=== PATIENT | female | born 1990 | race Caucasian/White ===

== ENCOUNTER → 2021-02-01 12:13 | Outpatient (BNVA) | payer OTHER, SELFPAY | PROVIDERS: Family Provider Family Medicine; Visit Provider Nurse Practitioner | DX: Z20.822 Contact with and (suspected) exposure to COVID-19 (principal) | CPT/HCPCS: 87635 ==

== ENCOUNTER 2022-04-20 12:56 | Emergency (ER) | payer BC, MEDICAID, SELFPAY ==
[2022-04-20 13:01] VITALS: BP 168/87; PULSE 117; RESP 16; TEMP 36.7; O2SAT 98
--- NOTE | 2022-04-20 13:03 | XR_ITS ---
WS: [id number] XR wrist RT min 3V* [id number] REASON FOR EXAM: wrist pain FINDINGS: Transverse distal metaphyseal fracture of the distal right radius. Fracture lines enter the radiocarp al joint space. There is mild depression of the medial fracture fragment. Fracture is inferior to the radial ulnar joint. Scapholunate interval is intact. Ulnar styloid is intact. Minimal ventral angulation. XR/XR wrist RT min 3V* [id number] IMPRESSION: Right wrist fracture as above.
--- NOTE | 2022-04-20 14:22 | W.ED.EXTPRO ---
Documented by User: MENDY Driscoll 04/21/22 09:50 HPI - Extremity Problem General: Chief complaint: Extremity Injury, Upper Stated complaint: right wrist pain Time Seen by Provider: 04/20/22 14:02 History of Present Illness: Patient is a 31-year-old female comes to the ED with right wrist pain. Injury occurred just prior to arrival. Patient says she was out in the [place] with her pigs and she was chased by a pig and fell over landing on her right arm. She now has pain in her right wrist with some swelling. She rates her pain currently a 7 out of 10. Associated symptoms: Deny chest pain, fever(s) or rash Review of Systems Const: Denies: fever(s), chills or fatigue Eyes: Denies: change in vision or eye discomfort ENMT: Denies: throat pain, odynophagia, nasal discharge or nasal congestion Card: Denies: chest pain, palpitations, edema, swelling of feet/ankles, dyspnea on exertion or orthopnea Resp: Denies: dyspnea, productive cough or non-productive cough GI: Denies: abdominal pain, nausea, vomiting, diarrhea, constipation or hematochezia : Denies: flank pain, dysuria or hematuria Musc: Reports: extremity pain (Right wrist) and extremity swelling (Right wrist); Denies: neck pain or back pain Skin/Breast: Denies: rash or new lesions Neuro: Denies: headache(s), numbness in extremities or weakness in extremities [facility] ED PFSH: Medical History No pertinent family history Surgical History No pertinent past surgical history Social History Smoking and tobacco status: current every day smoker Physical Exam Const: COMMON NORMALS: patient oriented x3, healthy appearing and alert GENERAL APPEARANCE: cooperative and comfortable HENMT: COMMON NORMALS: normocephalic HEAD & SCALP: normocephalic MOUTH: Normal oral and palatal mucosa present THROAT: posterior oropharynx normal and uvula midline Neck/C-Spine: COMMON NORMALS: supple GENERAL: Yes normal visual inspection Resp: COMMON NORMALS: normal respiratory effort, No retractions, No use of accessory muscles and clear to auscultation bilaterally AUSCULTATION: clear to auscultation bilaterally Cardio: COMMON NORMALS: regular rate, regular rhythm, S1 normal heart sound present, S2 normal heart sound present, No gallops present (Cardio), No clicks present (Cardio), No murmurs present (Cardio) and Peripheral pulses 2+ throughout RATE: regular rate RHYTHM: regular rhythm HEART SOUNDS: S1 normal heart sound present and S2 normal heart sound present PERIPHERAL PULSES: Peripheral pulses 2+ throughout GI: COMMON NORMALS: Normal to inspection, nondistended, normoactive bowel sounds present, Soft to palpation, non-tender and no masses PALPATION: Yes Soft to palpation : COMMON NORMALS: Yes no CVA tenderness BLADDER/KIDNEY EXAM: Yes no CVA tenderness Back/Pelvis: COMMON NORMALS: no CVA tenderness Extremity: RIGHT UPPER EXTREMITY: Yes wrist Right wrist: Yes inspection (Swelling and ecchymosis noted), Yes palpation (Tenderness throughout wrist), Yes ROM (Limited due to pain) and Yes neurovascular exam (Intact) Neuro: COMMON NORMALS: patient oriented x3 SENSORIUM/ORIENTATION: Yes alert GAIT: Yes Normal gait present Skin: GENERAL SKIN EXAM: dry skin Course Vital Signs: Vital signs: Vital Signs Temperature 98.1 F 04/20/22 13:01 Pulse Rate 117 H 04/20/22 13:01 Respiratory Rate 16 04/20/22 13:01 Blood Pressure 168/87 04/20/22 13:01 Pulse Oximetry 98 04/20/22 13:01 Oxygen Delivery Me thod 04/20/22 13:01 MDM - Extremity (Nontraumatic) Medical Decision Making Patient is a 31-year-old female comes to the ED with right wrist pain. Injury occurred just prior to arrival. Patient says she was out in the [place] with her pigs and she was chased by a pig and fell over landing on her right arm. Vitals are stable. Exam of patient's shows some swelling and ecchymosis around right wrist. She has tenderness throughout her wrist. Limited range of motion in wrist due to pain neurovascular tact. X-ray of right wrist shows a transverse distal metaphyseal fracture of distal right radius. Patient was put in a volar splint. I placed an order with case management for patient be referred to Ortho for follow-up. She was discharged home with prescription for hydrocodone for pain at home. Return ED precautions given. Patient understood and agree with plan. Lab Data Radiology Impressions Wrist X-Ray 04/20/22 13:03 IMPRESSION: Right wrist fracture as above. Discharge Plan Discharge Patient Disposition: Home Clinical Impression: Fracture of wrist Qualifiers: Encounter type: initial encounter Fracture type: closed Laterality: right Qualified Code(s): S62.101A - Fracture of unspecified carpal bone, right wrist, initial encounter for closed fracture Condition: Stable Prescriptions: New ibuprofen 800 mg tablet 800 mg PO Q8H PRN (Reason: pain) Qty: 20 0RF No Action (DME) Fast Form Cock Up Splint See Rx Instructions .ROUTE .MEDSUPPLY Qty: 1 0RF Rx Instructions: As directed Discharge Orders: Discharge ED (Routine); Ordered 04/20/22 Ordered By: Cleveland Kirk Referrals: Kaycee Devi FNP [Primary Care Provider] - Discharge Diet: Regular Discharge Activity: Limit activity as instructed Patient Instructions: Wrist Fracture in Adults (ED), Opioid Safety Activity Restrictions/Additional Instructions: Follow-up with medical provider as directed. Case management should be contacted in the next several days set up an appoint with Ortho for follow-up. Keep splint on and dry and limit activity of right arm until cleared by Ortho. Take medications as prescribed. Return to the ER or your medical provider if condition worsens. Please read and understand discharge instructions. Thank you for choosing [facility] for your healthcare needs today. Please realize this is an emergency room and that we are providing you with a medical screening exam and this may not be complete and all inclusive of all the testing and or work up that you may need to determine your ailment or severity of your illness. It is very important that you follow up as instructed or that you return to the Emergency Department should you have concerns or if your condition changes or worsens in any way. Coding Level of Care Code ED Vendor Management Specialist for Chg Fwd Exam Comprehensive Documented by User: Rajna Blake DO 04/23/22 16:55 HPI - Extremity Problem General: Chief complaint: Extremity Injury, Upper Stated complaint: right wrist pain Time Seen by Provider: 04/20/22 14:02 [facility] ED PFSH: Medical History No pertinent family history Surgical History No pertinent past surgical history Social History Smoking and tobacco status: current every day smoker Course Vital Signs: Vital signs: Vital Signs Temperature 98.1 F 04/20/22 13:01 Pulse Rate 117 H 04/20/22 13:01 Respiratory Rate 16 04/20/22 13:01 Blood Pressure 168/87 04/20/22 13:01 Pulse Oximetry 98 04/20/22 13:01 Oxygen Delivery Me thod 04/20/22 13:01 MDM - Extremity (Nontraumatic) Medical Decision Making Patient is a 31-year-old female comes to the ED with right wrist pain. Injury occurred just prior to arrival. Patient says she was out in the [place]e with her pigs and she was chased by a pig and fell over landing on her right arm. Vitals are stable. Exam of patient's shows some swelling and ecchymosis around right wrist. She has tenderness throughout her wrist. Limited range of motion in wrist due to pain neurovascular tact. X-ray of right wrist shows a transverse distal metaphyseal fracture of distal right radius. Patient was put in a volar splint. I placed an order with case management for patient be referred to Ortho for follow-up. She was discharged home with prescription for hydrocodone for pain at home. Return ED precautions given. Patient understood and agree with plan. Chart reviewed and patient discussed with midlevel. Agree with assessment and plan. Lab Data Radiology Impressions Wrist X-Ray 04/20/22 13:03 IMPRESSION: Right wrist fracture as above. Discharge Plan Discharge Patient Disposition: Home Clinical Impression: Fracture of wrist Qualifiers: Encounter type: initial encounter Fracture type: closed Laterality: right Qualified Code(s): S62.101A - Fracture of unspecified carpal bone, right wrist, initial encounter for closed fracture Condition: Stable Prescriptions: New ibuprofen 800 mg tablet 800 mg PO Q8H PRN (Reason: pain) Qty: 20 0RF No Action (DME) Fast Form Cock Up Splint See Rx Instructions .ROUTE .MEDSUPPLY Qty: 1 0RF Rx Instructions: As directed Discharge Orders: Discharge ED (Routine); Ordered 04/20/22 Ordered By: Cleveland Kirk Referrals: Kaycee Devi FNP [Primary Care Provider] - Discharge Diet: Regular Discharge Activity: Limit activity as instructed Patient Instructions: Wrist Fracture in Adults (ED), Opioid Safety Activity Restrictions/Additional Instructions: Follow-up with medical provider as directed. Case management should be contacted in the next several days set up an appoint with Ortho for follow-up. Keep splint on and dry and limit activity of right arm until cleared by Ortho. Take medications as prescribed. Return to the ER or your medical provider if condition worsens. Please read and understand discharge instructions. Thank you for choosing [facility] for your healthcare needs today. Please realize this is an emergency room and that we are providing you with a medical screening exam and this may not be complete and all inclusive of all the testing and or work up that you may need to determine your ailment or severity of your illness. It is very important that you follow up as instructed or that you return to the Emergency Department should you have concerns or if your condition changes or worsens in any way. Coding Level of Care Code ED Vendor Management Specialist for Dinora Edwards Exam Comprehensive
[2022-04-20] MEDS: HYDROcodone-acetaminophen 7.5-325 mg Tablet 1 TAB PO (14:42)
--- NOTE | 2022-04-21 05:04 | DCPLANNER ---
Addendum entered by Regina Wells 04/24/22 13:49: Patient had a follow up appointment scheduled with ortho - patient did attend appointment. Original Note: schedule manager had message to schedule a follow up appointment for patient with ortho. schedule manager sent patients information to the front office staff at ortho. Patients information will be printed and reviewed. Clinic will call patient with appointment information.
== END 2022-04-20 14:58 | disposition home or self-care (01) ==
PROVIDERS: Emergency Provider Physician Assistant; PCP Registered Nurse
DX: S62.101A Fracture of unspecified carpal bone, right wrist, initial encounter for closed fracture (principal); F17.200 Nicotine dependence, unspecified, uncomplicated; W18.30XA Fall on same level, unspecified, initial encounter
CPT/HCPCS: 29125; 73110; 99283

== ENCOUNTER 2022-04-22 16:25 | Outpatient (CLI) | payer BC, MEDICAID, SELFPAY | END 2022-04-22 16:26 | disposition home or self-care (01) | LOC: SPT 16:25 | PROVIDERS: PCP Registered Nurse; Visit Provider Orthopaedic Surgery | DX: Z46.89 Encounter for fitting and adjustment of other specified devices (principal); S52.591D Other fractures of lower end of right radius, subsequent encounter for closed fracture with routine healing; X58.XXXD Exposure to other specified factors, subsequent encounter | CPT/HCPCS: 97760; L3982 ==

== ENCOUNTER → 2022-05-15 10:59 | Outpatient (BNVA) | payer BC, MEDICAID, SELFPAY | PROVIDERS: PCP Registered Nurse; Visit Provider Orthopaedic Surgery | DX: S66.211A Strain of extensor muscle, fascia and tendon of right thumb at wrist and hand level, initial encounter (principal); X58.XXXA Exposure to other specified factors, initial encounter; S52.501A Unspecified fracture of the lower end of right radius, initial encounter for closed fracture | CPT/HCPCS: 73110 ==

== ENCOUNTER → 2022-05-19 08:28 | Outpatient (BNVA) | payer BC, MEDICAID, SELFPAY | PROVIDERS: PCP Registered Nurse; Visit Provider Student in an Organized Health Care Education/Training Program | DX: S66.811A Strain of other specified muscles, fascia and tendons at wrist and hand level, right hand, initial encounter (principal); S52.501A Unspecified fracture of the lower end of right radius, initial encounter for closed fracture; W18.39XA Other fall on same level, initial encounter | CPT/HCPCS: 73130 ==

== ENCOUNTER 2022-05-27 08:06 | Day surgery (SDC) | payer BC, MEDICAID, SELFPAY ==
[2022-05-26 17:45] VITALS: BMI 29.2
--- NOTE | 2022-05-27 08:27 | W.PM.OPSUD ---
Surgery/Procedure H&P Update DATE OF PROCEDURE: May 27, 2022 DATE H&P PERFORMED: 05/19/22 CHANGES TO PREVIOUS DOCUMENTATION: None. PREOP DIAGNOSIS: Right EPL tendon rupture PRIMARY INDICATION FOR PROCEDURE: Right EPL tendon Rupture PLANNED PROCEDURE: Operation Date: 05/27/22 11:50 Proposed Procedures p RIGHT EXTENSOR INDICIS PROPRIUS TO EXTENSOR POLICIS LONGUS TRANSFTER 25868,S66.819A(Right) - Brandan Kirk DO
[2022-05-27 08:29] VITALS: BP 136/91; PULSE 103; RESP 18; TEMP 36.7; O2SAT 99
[2022-05-27] MEDS: sodium chloride 0.9% 1,000 ML 30 ML IV (08:45)
[2022-05-27] MEDS: ketorolac 30 mg/mL INJ IVP (08:45)
[2022-05-27] MEDS: scopolamine 1.5 Patch 1 PATCH TRANSDERMA (08:45)
[2022-05-27] MEDS: acetaminophen 1,000 MG/100 ML PIGGYBACK 400 MG IV (08:45)
[2022-05-27] MEDS: ceFAZolin 2,000 MG in sodium chloride 0.9% (plus) 50 ML 100 MG IV (09:17)
--- NOTE | 2022-05-27 09:30 | ANES.PREANE2 ---
Pre-Anesthetic Assessment Height/Weight: Height 1.57 m Weight 72.575 kg Temp Pulse Resp BP Pulse Ox O2 Del Method 98.1 F 103 H 18 136/91 99 05/27/22 08:29 05/27/22 08:29 05/27/22 08:29 05/27/22 08:29 05/27/22 08:29 05/27/22 08:41 Preop Diagnosis: Right EPL tendon rupture Operation Date: 05/27/22 11:50 Proposed Procedures p RIGHT EXTENSOR INDICIS PROPRIUS TO EXTENSOR POLICIS LONGUS TRANSFTER [id number],S66.819A(Right) - Brandan Kirk DO Familial anesthetic complications: None Was Beta Kassandra taken within 24 hours: N/A Was Clonidine taken within 24 hours: N/A Last intake: Intake Last Liquid Date 05/26/22 Last Liquid Time 22:30 Last Solid Date 05/26/22 Last Solid Time 20:00 Social Tobacco and No alcohol Exam alert, oriented x 3, clear to auscultation bilaterally and regular rate & rhythm Airway Submandibular: within normal limits Cervical ROM: within normal limits Mallampati: Class II Dentition: full Anesthetic Plan ASA status: 2 Anesthesia: Choice Medications/Allergies Home Medications Medication Instructions Recorded Confirmed Last Taken Type ibuprofen 800 mg tablet 800 mg PO Q8H PRN pain #20 tabs 04/20/22 05/27/22 05/20/22 Rx Fast Form Cock Up Splint #1 ea 04/22/22 05/19/22 Unknown Rx Allergies Allergy/AdvReac Type Severity Reaction Status Date / Time No Known Allergies Allergy Verified 05/27/22 08:24 Current Medications Generic Name Dose Route Start Last Admin Trade Name Freq PRN Reason Stop Dose Admin Sodium Chloride 1,000 mls @ 30 mls/hr 05/27/22 08:15 05/27/22 08:45 Sodium Chloride 0.9% IV 05/28/22 08:14 30 mls/hr .Q24H ARLENE Administration PFSH Anesthesia Medical History (Updated 05/23/22 @ 17:04 by Brandan Kirk DO) Fracture of distal end of right radius No pertinent family history Surgical History No pertinent past surgical history Social History Smoking and tobacco status: current every day smoker Female Reproductive History Date of last menstrual period: 05/20/22 Data Anesthesia Cardiac Studies: No Data to Display
[2022-05-27] MEDS: lidocaine 1% INJ 20 mL INJECTION (09:47)
--- NOTE | 2022-05-27 11:03 | PM.OP2 ---
Brief Operative Note Date of procedure: 05/27/22 Pre-op diagnosis: Right EPL tendon rupture Post-op diagnosis: same Procedure Done: Right extensor indicis proprius to extensor pollicis longus tendon transfer Surgeon: Brandan Kirk Estimated blood loss (mL): 10 Complications: None Post-op Plan: Patient splint on in place. Fingertips warm well perfused. taken to PACU in stable condition. Patient will be given appropriate discharge instructions as well as pain medication postoperatively. We will get patient in with OT hand therapy for a forearm-based thumb spica splint. Should be nonweightbearing to the right upper extremity. Patient follow-up with the orthopedic office in 2 weeks. Patient understands agrees with current plan. All questions answered. Condition: stable Disposition: same day Coding Level of Care Code Acute Entry Level Project Coordinator for Dinora Edwards
--- NOTE | 2022-05-27 11:04 | PM.PACU ---
PACU note Narrative: Patient taken to PACU in stable condition. Splint on in place and clean dry and intact. Fingertips warm well perfused. Thumb spica on and in place. Patient's pain controlled. Sensation intact light touch distally. Exam: awake (See narrative for detailed exam) Disposition: discharged
--- NOTE | 2022-05-27 11:06 | P.OP_ITS ---
Operative Report Date of procedure: May 27, 2022 Pre-op diagnosis: Preop Diagnosis Right EPL tendon rupture Post-op diagnosis: Same Procedure done: Right extensor indicis proprius to extensor pollicis longus tendon transfer Surgeon: Brandan Kirk DO Estimated blood loss: 10 mL 56 minutes IV fluids: See anesthesia record Complications: None Findings: See operative report narrative Condition: stable Disposition: same day Brief History: Patient is a 31-year-old female who is being treated nonoperatively for a right distal radius fracture by my partner. She went on to heal this without issues however 4 weeks out treatment she noticed a pop and inability to extend the right thumb. She was found to have a EPL rupture. She was then referred to my office for evaluation. On my evaluation she is found to have a right EPL rupture. Her fracture of the distal radius is healed with no significant dorsal callus or prominence. Given her young age and lack of function to her right hand through shared decision making she would like to proceed with a right hand extensor indicis proprius to extensor pollicis longus tendon transfer. We talked about all of her treatment options as far as risk benefits complication alternatives to surgical and nonsurgical treatment options understanding her wr ist she agrees to proceed with surgical invention. Consent was obtained in the office. Procedure: Patient was seen evaluated in the preoperative holding area. Consent was reviewed with patient. Correct extremity was then marked she was seen evaluate by the anesthesia department cleared for surgery soon taken back into the OR and placed on the OR table in supine position all bony prominences well-padded patient was appropriately secured to the bed. Right upper extremity was then placed on an arm table. Nonsterile tourniquet applied to the right upper extremity arm. She then underwent anesthesia per the anesthesia department. Right upper extremity is then prepped and draped in sterile orthopedic fashion. She received appropriate preoperative antibiotics. Final timeout performed. Esmarch tourniquet was used to exsanguinate the right upper extremity and tourniquet was insufflated to 250 mmHg. I first started with my small incision centered over the first metacarpal to identify the EPL tendon and site for tendon repair. Sharp scalpel excision through skin and subcutaneous tissue was then performed this was roughly a 2.5 cm incision that they have utilize Littler dissection scissors to spread and protect dorsal cutaneous nerve branches. Next identified the EPL tendon. I then utilized a rag nail retractor and gently pulled the ruptured tendon was delivered into this incision site. I then utilized Littler dissection scissors to free it mobilized the tendon distally to have appropriate length for my repair. This was wrapped in a moist Ray-Med and I proceeded with harvest of my EIP tendon. The extremity a small longitudinal 1 cm incision distally just proximal to the MP joint. Some scalpel through skin subcutaneous tissue I then utilized Littler dissection scissors to spread longitudinally. I identified the 2 tendons to the right index finger. I then identified the EIP which was on the ulnar side. I then placed my Hurricane and elevated this and then tracked the tendon proximally and then carried my incision dorsally just over the extensor retinaculum utilizing the tension from by a Hurricane underneath the EIP tendon to make direct incision over this. Next I confirmed just at the distal to the wrist crease I did have to incise some of the retinaculum and identified the distal muscle belly confirming that this again was the EIP tendon. I then transected this tendon distally and delivered this through the incision proximally at the wrist extension crease. I then took my tendon passer and followed this subcutaneously along the path of the EPL tendon directly into by dorsal wrist incision and evidence shuttled the EIP tendon with the same past to have appropriate lateral pole. At the next shuttled by small tendons of the EIP through the EPL tendon utilizing a Pulvertaft weave. This was done in standard Pulvertaft weave technique. I started with my initial weave and set by appropriate tension with thumb in appropriate extension. All my blood bank assistant helped tension I then placed 2 horizontal mattress stitches using Ethibond suture. I then took the wrist through flexion as well as extension when I brought the wrist into extension had appropriate thumb to index was touching in the hand and wrist flexion the thumb was extended. I was satisfied with my attention was then carried on 3 more Pulvertaft weave's of the EIP through EPL tendon and then placed Ethibond suture at each of these Pulvertaft weave sites. This had excellent repair durability and fixation. The finger repair was then stressed multiple times. I then had anesthesia awakened patient from anesthesia and then had patient actively flex and extend her right thumb which she was able to do as well as pointer index finger. This point in time the excess tendons were then cut. Patient was then placed back under anesthesia tourniquet was then deflated. Hemostasis was satisfactory with bipolar electrocautery. Repair of the extensor retinaculum with 0 Vicryl suture. Skin was then closed with interruptted 3-0 Vicryl suture and nylon suture for skin. Incisions were then covered with Xeroform, 4 x 4's ABDs Kerlix and a thumb spica splint was then placed keeping the thumb in full extension to protect repair. Patient was then awakened from anesthesia and taken to PACU in stable condition Disposition: Patient taken to PACU in stable condition. Splint on in place clean dry and intact. She be given appropriate discharge instructions as well as pain medication postoperatively. We will get her started and EIP to EPL tendon transfer protocol. We will have patient worked in close conjunction with our OT hand therapy department. We will have patient follow-up with me in office in 2 weeks. Patient understands she has any questions or concerns she contact the office.
[2022-05-27 11:07] VITALS: BP 92/43; PULSE 91; RESP 18; TEMP 36.6; O2SAT 97
[2022-05-27 11:10] VITALS: BP 92/70; PULSE 88; RESP 20; O2SAT 91
[2022-05-27 11:15] VITALS: BP 106/63; PULSE 89; RESP 14; TEMP 37; O2SAT 97
--- NOTE | 2022-05-27 11:15 | SUR.PHASEI ---
PT TO PACU 5 PT AWAKES TO VOICE, GOOD RESP NOTED ON RA VSS SATS 96% ON RA RT LOWER ARM AND HAND DRSSING D/I DISTAL FINGERS PINK WARM WITH CAP REFILL LESS THAN 3 SECONDS. IV TO LT HAND #20 NS 700ML AT KVO RATE. MONITOR SR WITH NO ECTOPY, ID BRACELET TO LT WRIST, PT ID'D WITH 2 IDENTIFIERS. BILAT SCDS
[2022-05-27 11:24] VITALS: BP 100/75; PULSE 78; RESP 16; TEMP 36.2; O2SAT 96
--- NOTE | 2022-05-27 11:29 | SUR.PHASEI ---
1123 PT AWAKE ALERT VSS PT MOVES RT FINGERS TO COMMAND, REMAINS PINK WARM DRESSING D/I HANDOFF AT BEDSIDE IN OPS
[2022-05-27 11:38] VITALS: BP 127/87; PULSE 87; RESP 16; TEMP 36.4; O2SAT 98
[2022-05-27] MEDS: HYDROcodone-acetaminophen 5-325 mg Tablet 1 TAB PO (11:42)
--- NOTE | 2022-05-27 14:54 | ANE.PACU2 ---
Inpatient post-anesthesia follow up: Airway intact: Yes Vital signs: Temperature 97.5 F Pulse Rate 87 Respiratory Rate 16 Blood Pressure 127/87 Pulse Oximetry 98 Oxygen Delivery Me thod Room Air Oxygen Flow Rate Fraction of Inspir ed Oxygen Hydration adequate: Yes Nausea and vomiting: No Pain level: 2 Mental status: Baseline
== END 2022-05-27 12:07 | disposition home or self-care (01) ==
PROVIDERS: PCP Registered Nurse; Visit Provider Student in an Organized Health Care Education/Training Program
PROC: (CPT 26480; principal; 2022-05-27 11:40)
DX: S66.811A Strain of other specified muscles, fascia and tendons at wrist and hand level, right hand, initial encounter (principal); W19.XXXA Unspecified fall, initial encounter; F17.210 Nicotine dependence, cigarettes, uncomplicated
CPT/HCPCS: 26480; 81025; J0131; J0690; J1885; J2250; J2704; J2795; J3010; J7030

== ENCOUNTER 2022-06-16 15:08 | Outpatient (CLI) | payer BC, MEDICAID, SELFPAY | END 2022-06-16 15:09 | disposition home or self-care (01) | LOC: SPT 15:08 | PROVIDERS: PCP Registered Nurse; Visit Provider Student in an Organized Health Care Education/Training Program | DX: Z47.89 Encounter for other orthopedic aftercare (principal) | CPT/HCPCS: 97760; L3809 ==

== ENCOUNTER 2022-06-17 06:00 | Outpatient (RCR) | payer BC, MEDICAID, SELFPAY | END 2022-06-17 23:59 | disposition home or self-care (01) | LOC: SOT 06:00 | PROVIDERS: PCP Registered Nurse; Visit Provider Student in an Organized Health Care Education/Training Program | DX: S53.3 Traumatic rupture of ulnar collateral ligament (principal); X58.XXXS Exposure to other specified factors, sequela | CPT/HCPCS: 97166; L3807 ==

== ENCOUNTER 2022-06-18 07:00 | Outpatient (RCR) | payer BC, MEDICAID, SELFPAY | END 2022-07-18 23:59 | disposition home or self-care (01) | LOC: SOT 07:00 | PROVIDERS: PCP Registered Nurse; Visit Provider Student in an Organized Health Care Education/Training Program | DX: S53.3 Traumatic rupture of ulnar collateral ligament (principal); Z98.890 Other specified postprocedural states; X58.XXXS Exposure to other specified factors, sequela | CPT/HCPCS: 97018; 97035; 97110; 97140 ==

== ENCOUNTER 2022-07-19 06:00 | Outpatient (RCR) | payer BC, MEDICAID, SELFPAY | END 2022-08-18 23:59 | disposition home or self-care (01) | LOC: SOT 06:00 | PROVIDERS: PCP Registered Nurse; Visit Provider Student in an Organized Health Care Education/Training Program | DX: S53.3 Traumatic rupture of ulnar collateral ligament (principal); X58.XXXS Exposure to other specified factors, sequela | CPT/HCPCS: 97018; 97022; 97110; 97140 ==

== ENCOUNTER 2022-08-11 23:12 | Emergency (ER) | payer BC, MEDICAID, SELFPAY ==
[2022-08-11 23:18] VITALS: BP 135/89; PULSE 97; RESP 16; TEMP 36.7; O2SAT 97; BMI 28.3
--- NOTE | 2022-08-11 23:27 | USR_ITS ---
PROCEDURE INFORMATION: Exam: US Duplex Left Lower Extremity Veins, Limited Exam date and time: 08/11/2022 11:40 PM Age: 32 years old Clinical indication: Leg, lower; Prior surgery; Surgery date: <1 month; Surgery type: C/O pain left popliteal region x 2-3 days; S/P hysterectomy July 29, 2022. No history of dvt per patient. No erythema. No edema. ; Additional info: Pain medial thigh and popliteal region concern for dvt TECHNIQUE: Imaging protocol: Real-time duplex ultrasound of the Left extremity with 2-D swan scale, color Doppler flow and spectral waveform analysis including responses to compression and other maneuvers (when performed) with image documentation. Limited exam focused on the left lower extremity veins. COMPARISON: US OB >= 14 weeks fetus [id number] 12/28/2017 10:06 AM FINDINGS: Left deep veins: Unremarkable. The common femoral, femoral, proximal profunda femoral and popliteal veins are patent without thrombus. Normal Doppler waveforms. Normal compressibility and/or augmentation response. Left superficial veins: Unremarkable. Saphenofemoral junction is patent without thrombus. Soft tissues: Unremarkable. US/[place] [id number] IMPRESSION: No evidence of deep vein thrombosis.
--- NOTE | 2022-08-12 00:49 | W.ED.EXTPRO ---
HPI - Extremity Problem General: Chief complaint: Extremity Problem,Nontraumatic Stated complaint: Left leg pian and swelling Time Seen by Provider: 08/11/22 23:15 History of Present Illness: Patient is in today for left leg pain. She reports that she was having an ache behind her left knee most of the day and then when she went to sleep for a nap she woke up and had a significant pain behind her left knee and in her left inner thigh. She is concerned that this could be a blood clot because she recently had a hysterectomy 2 weeks ago. She denies any fever, chills, nausea, vomiting. She denies chest pain or shortness of breath Associated symptoms: Deny chest pain or fever(s) Review of Systems Const: Denies: fever(s), chills or body aches Eyes: Denies: change in vision or blurry vision ENMT: Denies: throat pain Card: Denies: chest pain, palpitations, irregular heart rhythm, lightheadedness or syncope Resp: Denies: dyspnea, productive cough or non-productive cough GI: Denies: abdominal pain, nausea or vomiting : Denies: flank pain, difficulty voiding, dysuria, urinary frequency, urinary urgency or urinary hesitancy Musc: Reports: other (Pain behind left knee, to left inner thigh) Neuro: Denies: headache(s), numbness in extremities or weakness in extremities PFS ED PFSH: Medical History Fracture of distal end of right radius No pertinent family history Surgical History No pertinent past surgical history Social History Smoking and tobacco status: current every day smoker Female Reproductive History: Date of last menstrual period: 05/20/22 Physical Exam Const: COMMON NORMALS: no acute distress, patient oriented x3 and alert GENERAL APPEARANCE: cooperative ORIENTATION/CONSCIOUSNESS: Yes awake, Yes oriented to person, Yes oriented to place and Yes oriented to time HENMT: COMMON NORMALS: EAC's normal and TM's normal bilaterally EXTERNAL AUDITORY CANAL: EAC's normal TYMPANIC MEMBRANE: TM's normal bilaterally MOUTH: Normal oral and palatal mucosa present THROAT: posterior oropharynx normal Eye: COMMON NORMALS: Equal, round and reactive pupils present, EOMs intact bilaterally and conjunctivae normal GENERAL EYE: appearance normal, both eyes and all related structures ALIGNMENT: Yes alignment normal CONJUNCTIVA: Yes conjunctivae normal SCLERA: sclerae normal PUPIL: Yes Equal, round and reactive pupils present Neck/C-Spine: COMMON NORMALS: full ROM Resp: COMMON NORMALS: normal respiratory effort, No retractions, No use of accessory muscles and clear to auscultation bilaterally EFFORT & INSPECTION: Yes symmetric chest movement AUSCULTATION: clear to auscultation bilaterally Cardio: COMMON NORMALS: regular rate, regular rhythm, S1 normal heart sound present and S2 normal heart sound present RATE: regular rate RHYTHM: regular rhythm HEART SOUNDS: S1 normal heart sound present and S2 normal heart sound present GI: COMMON NORMALS: Normal to inspection, nondistended, normoactive bowel sounds present, Soft to palpation, non-tender, No hepatosplenomegaly present, no masses and no bruits INSPECTION: Yes normal to inspection PALPATION: Yes Soft to palpation and Yes No hepatosplenomegaly present : COMMON NORMALS: Yes no CVA tenderness BLADDER/KIDNEY EXAM: Yes no CVA tenderness Back/Pelvis: COMMON NORMALS: no CVA tenderness Extremity: NARRATIVE EXTREMITY EXAM: Some tenderness to palpation left popliteal and left inner thigh region. No erythema or swelling appreciated. CSM within normal limits to distal leg. Neuro: COMMON NORMALS: patient oriented x3 SENSORIUM/ORIENTATION: Yes alert, Yes oriented to person, Yes oriented to place and Yes oriented to time Psych: COMMON NORMALS: cooperative Course Vital Signs: Vital signs: Vital Signs Temperature 98.0 F 08/11/22 23:18 Pulse Rate 97 08/11/22 23:18 Respiratory Rate 16 08/11/22 23:18 Blood Pressure 135/89 08/11/22 23:18 Pulse Oximetry 97 08/11/22 23:18 MDM - Extremity (Nontraumatic) Medical Decision Making Consider muscle strain, leg pain, DVT Given the patient's recent surgical procedure and anatomical region of pain and ultrasound venous duplex was completed. Ultrasound was negative for DVT. Advised patient of this. Had a lengthy discussion regarding conservative measures for leg pain. Advised her to follow-up with primary care provider. Return to the ER as needed for new or worsening symptoms. Patient is very agreeable and wishes to be discharged to home. Patient is discharged home in stable condition Lab Data Radiology Impressions Venous Duplex 08/11/22 23:27 IMPRESSION: No evidence of deep vein thrombosis. Discharge Plan Discharge Patient Disposition: Home Clinical Impression: Left leg pain Condition: Stable Prescriptions: No Action (DME) THUMB SPICA. See Rx Instructions .Route .MEDSUPPLY Qty: 1 0RF Rx Instructions: As directed (DME) Fast Form Cock Up Splint See Rx Instructions .ROUTE .MEDSUPPLY Qty: 1 0RF Rx Instructions: As directed ibuprofen 800 mg tablet 800 mg PO Q8H PRN (Reason: pain) Qty: 20 0RF Discharge Orders: Discharge ED (Routine); Ordered 08/12/22 Ordered By: Nataly Krishna Referrals: Kaycee Devi FNP [Primary Care Provider] - Discharge Diet: Usual diet Discharge Activity: Resume usual activity Patient Instructions: Leg Pain (ED) Activity Restrictions/Additional Instructions: Follow-up with your primary care provider. Return to the ER as needed for new or worsening symptoms. Coding Level of Care Code ED Special Effects Technician for Dinora Edwards
== END 2022-08-12 00:40 | disposition home or self-care (01) ==
PROVIDERS: Emergency Provider Nurse Practitioner Family; PCP Registered Nurse
DX: M79.605 Pain in left leg (principal); F17.210 Nicotine dependence, cigarettes, uncomplicated
CPT/HCPCS: 93971; 99284

== ENCOUNTER 2022-08-19 06:00 | Outpatient (RCR) | payer BC, MEDICAID, SELFPAY | END 2022-09-10 12:17 | disposition home or self-care (01) | LOC: SOT 06:00 | PROVIDERS: PCP Registered Nurse; Visit Provider Student in an Organized Health Care Education/Training Program | DX: Z47.89 Encounter for other orthopedic aftercare (principal) | CPT/HCPCS: 97018; 97110; 97140 ==

== ENCOUNTER 2022-12-25 12:21 | Emergency (ER) | payer BC, MEDICAID, SELFPAY ==
[2022-12-25 13:00] VITALS: BP 125/76; PULSE 98; RESP 16; TEMP 36.6; O2SAT 98; BMI 32.0
[2022-12-25 13:12] LABS: Basophils # 0.1 10^3/uL (0.0-0.1); Basophils % 0.6 %; Eosinophils # 0.4 10^3/uL (0.0-0.8); Eosinophils % 3.5 %; Hematocrit 41.1 % (37.0-47.0); Hemoglobin 13.2 g/dL (11.5-15.3); Lymphocytes # 2.3 10^3/uL (0.8-4.8); Lymphocytes % 20.6 %; Mean Corpuscular HGB Conc 32.1 g/dL (30.0-36.0); Mean Corpuscular Hemoglobin 27.2 pg (28.0-34.0); Mean Corpuscular Volume 84.6 fl (81-99); Mean Platelet Volume 9.6 fL (7.4-10.4); Monocytes # 0.9 10^3/uL (0.2-0.9); Monocytes % 8.3 %; Neutrophils # 7.44 10^3/uL (1.8-7.7); Neutrophils % 66.7 %; Nucleated Red Blood Cells % 0 %; Platelet Count 330 10^3/cmm (130-400); Red Blood Count 4.86 10^6/uL (4.1-5.3); Red Cell Distribution Width 13.9 % (12.1-15.1); White Blood Count 11.2 10^3/uL (4.0-10.0)
[2022-12-25 13:29] LABS: Albumin Level 4.4 g/dL (3.5-5.2); Alkaline Phosphatase 94 U/L (35-105); Anion Gap 14.3 (5-19); Aspartate Amino Transferase 20 U/L (0-32); Blood Urea Nitrogen 8 mg/dL (6-20); Calcium 9.3 mg/dL (8.5-10.5); Carbon Dioxide 23 mmol/L (22-29); Chloride 103 mmol/L (98-107); Globulin 3.4 g/dL (1.3-4.6); Glomerular Filtration Rate 117.4 mL/min (90-130); Glucose 91 mg/dL (65-115); Lipase 16 U/L (13-60); Osmolality Calculated 280 mOsm/kg (285-295); Potassium 4.3 mmol/L (3.5-5.1); Sodium 136 mmol/L (136-145); Total Bilirubin 0.4 mg/dL (0.15-1.2); Total Protein 7.8 g/dL (6.6-8.7)
[2022-12-25 13:32] LABS: HCG, Serum Qual Negative (Negative)
--- NOTE | 2022-12-25 13:36 | CT_ITS ---
WS: [id number] CT ABDOMEN PELVIS TECHNIQUE: Contrast-enhanced CT of the abdomen and pelvis with coronal and sagittal reformatted image s. CLINICAL INFORMATION: rlq abd pain COMPARISON: 2018 DLP: 621.[address] scans at [facility] use at least one of these dose optimization techniques: automated e xposure control; mA and/or kV adjustment per patient size (includes targeted exams where dose is matc hed to clinical indication); or iterative reconstruction. FINDINGS: Normal appendix RIGHT lower quadrant. No evidence of acute appendicitis. A few prominent lymph nodes in the RIGHT lower quadrant can be seen with mesenteric adenitis. Lung bases are well aerated. Mild diffuse fatty infiltration liver. Normal gallbladder. Normal portal vein and splenic vein. Normal pancreatic parenchymal enhancement. Normal spleen. Small esophageal hi atal hernia. Adrenal glands are normal. Normal renal parenchymal enhancement. Numerous small bilatera l renal cysts. Largest on the RIGHT measuring 1.7 CM. No hydronephrosis in either kidney. Celiac and SMA are patent. Normal caliber abdominal aorta. Urine distended bladder. Enhancing corpus luteum cyst in the RIGHT ovary measuring 1.3 CM. Small amount of free fluid in the pelvis. Mild sigmo id constipation. No evidence of high-grade small or large bowel obstruction. Tiny fat-containing umbi lical hernia. CT/CT abdomen pelvis w con* [id number] IMPRESSION: 1. No evidence of acute appendicitis. 2. A few prominent lymph nodes in the RIGHT lower quadrant can be seen with me senteric adenitis. 3. Enhancing RIGHT corpus luteum cyst measuring 1.3 cm with a small amount of free fluid in the pelvis. 4. Mild sigmoid constipation. 5. Urine distended bladder. 6. Numerous bilateral renal cysts largest in the RIGHT measuring 1.7 cm. 7. Tiny esophageal hiatal hernia. 8. No other acute findings.
[2022-12-25 13:39] LABS: Alanine Aminotransferase 24 U/L (0-33)
--- NOTE | 2022-12-25 13:46 | W.ED.ABDPA2 ---
HPI - Abdominal Pain General: Chief Complaint: Abdominal Pain Stated Complaint: Lower Abd Pain Time Seen by Provider: 12/25/22 13:09 History of Present Illness: Patient presents to the ER with right lower quadrant abdominal pain sharp stabbing in nature started approximately 730 this morning has continued ever since but is lightening up. Patient states that lying flat decreases the pain and standing increases the pain. Patient has never had this before. Patient has had a hysterectomy. MD elicited complaint: abdominal pain Pertinent past history: none Onset (ago): hour(s) (About 6 hours ago) Pain Consistency: constant (But lessened) Location: RLQ Severity: severe Quality: stabbing Exacerbating factors: movement Relieving factors: other (Lying flat) Associated Symptoms: Reports nausea Review of Systems General: Reports: 10 or more systems reviewed and unremarkable except in HPI and below GI: Reports: nausea PFSH ED PFSH: Medical History Fracture of distal end of right radius No pertinent family history Surgical History No pertinent past surgical history Social History Smoking and tobacco status: current every day smoker Physical Exam Const: COMMON NORMALS: no acute distress, average body habitus, patient oriented x3, no limitations, healthy appearing, alert and well nourished HENMT: COMMON NORMALS: normocephalic, atraumatic, hearing grossly normal bilaterally, external ears normal, Normal external nose present and moist oral mucous membranes HEAD & SCALP: normocephalic and atraumatic NOSE: Normal external nose present EXTERNAL EAR: Yes external ears normal Eye: COMMON NORMALS: Equal, round and reactive pupils present, EOMs intact bilaterally, conjunctivae normal and no scleral icterus CONJUNCTIVA: Yes conjunctivae normal PUPIL: Yes Equal, round and reactive pupils present Neck/C-Spine: COMMON NORMALS: full ROM, no lymphadenopathy, supple, no meningeal signs, no JVD and Thyroid normal THYROID: Thyroid normal Chest: COMMONS NORMALS: normal inspection of the chest and normal palpation of entire chest wall Resp: COMMON NORMALS: normal respiratory effort, No retractions, No use of accessory muscles and clear to auscultation bilaterally AUSCULTATION: clear to auscultation bilaterally Cardio: COMMON NORMALS: no JVD, regular rate, regular rhythm, S1 normal heart sound present, S2 normal heart sound present, No gallops present (Cardio), No clicks present (Cardio), No murmurs present (Cardio) and No rub (Cardio) RATE: regular rate RHYTHM: regular rhythm HEART SOUNDS: S1 normal heart sound present and S2 normal heart sound present GI: COMMON NORMALS: Normal to inspection, nondistended, normoactive bowel sounds present, Soft to palpation, No hepatosplenomegaly present and no masses PALPATION: Yes Soft to palpation, Yes Tenderness to palpation present (GI) Details: RLQ, Yes No hepatosplenomegaly present, No Hepatomegaly present, No Splenomegaly present and No Pulsatile mass present : COMMON NORMALS: Yes no CVA tenderness BLADDER/KIDNEY EXAM: Yes no CVA tenderness Back/Pelvis: COMMON NORMALS: no CVA tenderness Neuro: COMMON NORMALS: patient oriented x3 SENSORIUM/ORIENTATION: Yes alert MENINGEAL SIGNS: Yes no meningeal signs Course Vital Signs: Vital signs: Vital Signs Temperature 97.8 F 12/25/22 13:00 Pulse Rate 98 12/25/22 13:00 Respiratory Rate 16 12/25/22 13:00 Blood Pressure 125/76 12/25/22 13:00 Pulse Oximetry 98 12/25/22 13:00 Oxygen Delivery Me thod Room Air 12/25/22 13:00 MDM - Abdominal Pain Medical Decision Making Patient presents to the ER with right lower quadrant pain sudden onset it partially resolved. Patient still has her appendix. Lab work was obtained which showed normal white count and everything else was benign. A CT of the abdomen pelvis with contrast was obtained which showed no evidence of acute appendicitis but did show right corpus luteum cyst and mild mesenteric adenitis. These results was explained to the patient patient be discharged home to follow-up with PCP in approximately 1 week as needed. Differential Diagnosis Likely abdominal pain; Unlikely acute appendicitis, calculus of kidney, constipation, diverticulitis, endometriosis, gastroenteritis, pancreatitis or small bowel obstruction Medical Records I reviewed the patient's medical records. Lab Data I reviewed the patient's lab results. 12/25/22 13:05 12/25/22 13:05 Labs/Radiology: Radiology Impressions Abdomen/Pelvis CT 12/25/22 13:36 IMPRESSION: 1. No evidence of acute appendicitis. 2. A few prominent lymph nodes in the RIGHT lower quadrant can be seen with mesenteric adenitis. 3. Enhancing RIGHT corpus luteum cyst measuring 1.3 cm with a small amount of free fluid in the pelvis. 4. Mild sigmoid constipation. 5. Urine distended bladder. 6. Numerous bilateral renal cysts largest in the RIGHT measuring 1.7 cm. 7. Tiny esophageal hiatal hernia. 8. No other acute findings. Laboratory Results WBC 11.2 10^3/uL (4.0-10.0) H 12/25/22 13:05 RBC 4.86 10^6/uL (4.1-5.3) 12/25/22 13:05 Hgb 13.2 g/dL (11.5-15.3) 12/25/22 13:05 Hct 41.1 % (37.0-47.0) 12/25/22 13:05 MCV 84.6 fl (81-99) 12/25/22 13:05 MCH 27.2 pg (28.0-34.0) L 12/25/22 13:05 MCHC 32.1 g/dL (30.0-36.0) 12/25/22 13:05 RDW 13.9 % (12.1-15.1) 12/25/22 13:05 Plt Count 330 10^3/cmm (130-400) 12/25/22 13:05 MPV 9.6 fL (7.4-10.4) 12/25/22 13:05 Neut % (Auto) 66.7 % 12/25/22 13:05 Lymph % (Auto) 20.6 % 12/25/22 13:05 Amador % (Auto) 8.3 % 12/25/22 13:05 Eos % (Auto) 3.5 % 12/25/22 13:05 Baso % (Auto) 0.6 % 12/25/22 13:05 Neut # (Auto) 7.44 10^3/uL (1.8-7.7) 12/25/22 13:05 Lymph # (Auto) 2.3 10^3/uL (0.8-4.8) 12/25/22 13:05 Amador # (Auto) 0.9 10^3/uL (0.2-0.9) 12/25/22 13:05 Eos # (Auto) 0.4 10^3/uL (0.0-0.8) 12/25/22 13:05 Baso # (Auto) 0.1 10^3/uL (0.0-0.1) 12/25/22 13:05 Nucleated RBC % (auto) 0 % 12/25/22 13:05 Nucleated RBCs # 0.0 /100WBC 12/25/22 13:05 Sodium 136 mmol/L (136-145) 12/25/22 13:05 Potassium 4.3 mmol/L (3.5-5.1) 12/25/22 13:05 Chloride 103 mmol/L (98-107) 12/25/22 13:05 Carbon Dioxide 23 mmol/L (22-29) 12/25/22 13:05 Anion Gap 14.3 (5-19) 12/25/22 13:05 BUN 8 mg/dL (6-20) 12/25/22 13:05 Creatinine 0.6 mg/dL (0.5-0.9) 12/25/22 13:05 GFR Calculation 117.4 mL/min (90-130) 12/25/22 13:05 Glucose 91 mg/dL (65-115) 12/25/22 13:05 Calculated Osmolality 280 mOsm/kg (285-295) L 12/25/22 13:05 Calcium 9.3 mg/dL (8.5-10.5) 12/25/22 13:05 Total Bilirubin 0.4 mg/dL (0.15-1.2) 12/25/22 13:05 AST 20 U/L (0-32) 12/25/22 13:05 ALT 24 U/L (0-33) 12/25/22 13:05 Alkaline Phosphatase 94 U/L (35-105) 12/25/22 13:05 Total Protein 7.8 g/dL (6.6-8.7) 12/25/22 13:05 Albumin 4.4 g/dL (3.5-5.2) 12/25/22 13:05 Globulin 3.4 g/dL (1.3-4.6) 12/25/22 13:05 Lipase 16 U/L (13-60) 12/25/22 13:05 HCG, Qual Negative (Negative) 12/25/22 13:05 Urine Color Yellow (Yellow) 12/25/22 14:15 Urine Appearance Clear (CLEAR) 12/25/22 14:15 Urine pH 7 (5-7) 12/25/22 14:15 Ur Specific [place] 1.010 (1.005-1.030) 12/25/22 14:15 Urine Protein Neg (Negative) 12/25/22 14:15 Urine Glucose (UA) Norm (Normal) 12/25/22 14:15 Urine Ketones Negative (Negative) 12/25/22 14:15 Urine Blood Neg (Negative) 12/25/22 14:15 Urine Nitrate Negative (Negative) 12/25/22 14:15 Urine Bilirubin Neg (Negative) 12/25/22 14:15 Urine Urobilinogen Norm mg/dL (Negative) 12/25/22 14:15 Ur Leukocyte Esterase Negative (Negative) 12/25/22 14:15 Discharge Plan Discharge Patient Disposition: Home Clinical Impression: Abdominal pain, right lower quadrant, Acute mesenteric adenitis, Cyst of right ovary Condition: Stable Prescriptions: No Action (DME) THUMB SPICA. See Rx Instructions .Route .MEDSUPPLY Qty: 1 0RF Rx Instructions: As directed (DME) Fast Form Cock Up Splint See Rx Instructions .ROUTE .MEDSUPPLY Qty: 1 0RF Rx Instructions: As directed phentermine 37.5 mg Capsule 37.5 mg PO DAILY Rx Instructions: must administer 30 minutes before or 1-2 hours after breakfast ibuprofen 800 mg tablet 800 mg PO Q8H PRN (Reason: pain) Qty: 20 0RF Discharge Orders: Discharge ED (Routine); Ordered 12/25/22 Ordered By: Amol Cam Referrals: Kaycee Devi FNP [Primary Care Provider] - Patient Instructions: Abdominal Pain (ED), Mesenteric Adenitis (ED), Ovarian Cyst Coding Level of Care Code ED Shipping And Receiving Material Handler for Dinora Edwards
[2022-12-25 14:02] VITALS: PULSE 90; RESP 18; O2SAT 99
[2022-12-25 14:23] LABS: Add Urine Microscopic? NO; Charge for UA Resulting for Rev
[2022-12-25 14:36] LABS: Bilirubin Urine Neg (Negative); Blood Urine Neg (Negative); Glucose Urine UA Norm (Normal); Ketones Urine Negative (Negative); Leukocyte Esterase Urine Negative (Negative); Nitrate Urine Negative (Negative); Protein Urine Neg (Negative); Urine Appearance Clear (CLEAR); Urine Color Yellow (Yellow); Urobilinogen Urine Norm (Negative); pH Urine 7 (5-7)
[2022-12-25 15:04] VITALS: BP 134/81; PULSE 95; RESP 16; O2SAT 99
== END 2022-12-25 15:05 | disposition home or self-care (01) ==
PROVIDERS: Physician Assistant; Emergency Provider Emergency Medicine; PCP Registered Nurse
DX: I88.0 Nonspecific mesenteric lymphadenitis (principal); N83.201 Unspecified ovarian cyst, right side; R10.31 Right lower quadrant pain
CPT/HCPCS: 36415; 74177; 80053; 81003; 83690; 84703; 85025; 99284; Q9967

== ENCOUNTER → 2023-05-28 14:08 | Outpatient (BNVA) | payer BC, MEDICAID, SELFPAY | PROVIDERS: PCP Registered Nurse; Visit Provider Nurse Practitioner Family | DX: R30.9 Painful micturition, unspecified (principal); N39.0 Urinary tract infection, site not specified | CPT/HCPCS: 81000; 87077; 87086; 87184 ==

== ENCOUNTER → 2023-06-06 12:38 | Outpatient (BNVA) | payer BC, MEDICAID, SELFPAY | PROVIDERS: PCP Registered Nurse; Visit Provider Emergency Medicine | DX: R39.9 Unspecified symptoms and signs involving the genitourinary system (principal) | CPT/HCPCS: 81000; 87077; 87086; 87184 ==

== ENCOUNTER 2023-11-23 06:48 | Day surgery (SDC) | payer MEDICAID, SELFPAY ==
--- NOTE | 2023-11-23 06:45 | P.HPUD_ITS ---
Surgery/Procedure H&P Update DATE OF PROCEDURE: November 23, 2023 DATE H&P PERFORMED: 11/17/23 H&P UPDATE INFORMATION: I have reviewed H&P completed within last 30 days, I have examined patient prior to procedure, No changes to prior documentation and H&P is in [facility] EMR on date indicated PLANNED PROCEDURE: Operation Date: 11/23/23 07:50 Proposed Procedures p EGD 36863, 16009, G0105, z12.11, K22.10(Not Applicable) - Douglas Rock MD s Colonoscopy(Not Applicable) - Douglas Rock MD
[2023-11-23 07:03] VITALS: BMI 31.1
[2023-11-23 07:04] VITALS: BP 133/87; PULSE 100; RESP 16; TEMP 36.3; O2SAT 99
[2023-11-23] MEDS: sodium chloride 0.9% 1,000 ML 30 ML IV (07:08)
--- NOTE | 2023-11-23 08:03 | ANES.PREANE2 ---
Pre-Anesthetic Assessment Height/Weight: Height 1.57 m Weight 77.111 kg Temp Pulse Resp BP Pulse Ox O2 Del Method 97.4 F L 100 16 133/87 99 Room Air 11/23/23 07:04 11/23/23 07:04 11/23/23 07:04 11/23/23 07:04 11/23/23 07:04 11/23/23 07:04 Preop Diagnosis: Abd pain Operation Date: 11/23/23 07:50 Proposed Procedures p EGD 51570, 80815, G0105, z12.11, K22.10(Not Applicable) - Douglas Rock MD s Colonoscopy(Not Applicable) - Douglas Rock MD Was Beta Kassandra taken within 24 hours: N/A Was Clonidine taken within 24 hours: N/A Last intake: Intake Last Liquid Date 11/22/23 Last Liquid Time 23:00 Last Solid Date 11/21/23 Last Solid Time 21:00 Social Tobacco and No alcohol Exam alert, oriented x 3, clear to auscultation bilaterally and regular rate & rhythm Airway Submandibular: within normal limits Cervical ROM: within normal limits Mallampati: Class II Dentition: full History/ROS No significant history except as noted and No significant complaints Pulmonary None reported CV/HEM None reported Hx stones Hepatic None reported GI Gastroesophageal Reflux Disease Metabolic None reported Musc/skel None reported Neuropsych None reported Anesthetic Plan ASA status: 2 Anesthesia: Anesthesia Evaluation and MAC Risk of > 500 ml blood loss (7ml/kg in children): No Medications/Allergies Home Medications Medication Instructions Recorded Confirmed Last Taken Type ibuprofen 800 mg tablet 800 mg PO Q8H PRN pain #20 tabs 04/20/22 11/19/23 1 Day Ago Rx ~11/18/23 phentermine 37.5 mg capsule 37.5 mg PO DAILY 12/25/22 11/19/23 11/16/23 History bisacodyl 5 mg tablet,delayed 5 mg PO DAILY PRN Constipation 10/25/23 11/23/23 11/22/23 History release (Dulcolax (bisacodyl)) pantoprazole 40 mg tablet,delayed 40 mg PO BID 6 weeks #84 tabs 10/25/23 11/23/23 11/21/23 Rx release (Protonix) Allergies Allergy/AdvReac Type Severity Reaction Status Date / Time topiramate [From Topamax] Allergy Severe ADR-Seizure Verified 11/19/23 13:20 Current Medications Generic Name Dose Route Start Last Admin Trade Name Kishan PRN Reason Stop Dose Admin Sodium Chloride 1,000 mls @ 30 mls/hr 11/23/23 07:00 11/23/23 07:08 Sodium Chloride 0.9% IV 11/24/23 06:59 30 mls/hr .Q24H ARLENE Administration PFSH Anesthesia Medical History (Updated 11/17/23 @ 11:24 by Murali Ag MA) Fracture of distal end of right radius No pertinent family history Surgical History (Updated 11/17/23 @ 11:24 by Murali Ag MA) No pertinent past surgical history Family History Grandfather Leukemia Grandmother Cancer Breast Cancer Father GERD (gastroesophageal reflux disease) Mother Seizure Social History (Updated 11/17/23 @ 11:25 by Murali Ag MA) Smoking and tobacco/nicotine status: current every day tobacco/nicotine user cigarettes Packs smoked per day: 1 Years cigarettes smoked: 12 [ Other cigarette details: on and off for 12 years] Alcohol intake: never Data Anesthesia Cardiac Studies: No Data to Display
[2023-11-23 08:43] VITALS: BP 97/53; PULSE 70; RESP 18; TEMP 36.4; O2SAT 98
[2023-11-23 08:53] VITALS: BP 116/72; PULSE 88; RESP 18; O2SAT 98
[2023-11-23 09:03] VITALS: BP 124/93; PULSE 66; RESP 18; O2SAT 100
[2023-11-23 09:11] VITALS: BP 105/69; PULSE 71; RESP 18; O2SAT 100
--- NOTE | 2023-11-23 09:25 | ANE.PACU2 ---
Inpatient post-anesthesia follow up: Airway intact: Yes Vital signs: Temperature 97.5 F Pulse Rate 71 Respiratory Rate 18 Blood Pressure 105/69 Pulse Oximetry 100 Oxygen Delivery Me thod Room Air Oxygen Flow Rate Fraction of Inspir ed Oxygen Hydration adequate: Yes Nausea and vomiting: No Pain level: 1 Mental status: Baseline
== END 2023-11-23 09:25 | disposition home or self-care (01) ==
PROVIDERS: PCP Registered Nurse; Visit Provider Surgery
PROC: 0DJ08ZZ Inspection of Upper Intestinal Tract, Via Natural or Artificial Opening Endoscopic (ICD-10-PCS; CPT 43235; principal; 2023-11-23 07:50)
PROC: 0DJD8ZZ Inspection of Lower Intestinal Tract, Via Natural or Artificial Opening Endoscopic (ICD-10-PCS; CPT 45378; 2023-11-23 07:50)
DX: K59.00 Constipation, unspecified (principal); K29.50 Unspecified chronic gastritis without bleeding; K21.9 Gastro-esophageal reflux disease without esophagitis; F17.210 Nicotine dependence, cigarettes, uncomplicated
CPT/HCPCS: 43239; 45378; 88305; 88342; J2704; J7030

== ENCOUNTER 2023-12-02 09:13 | Outpatient (CLI) | payer MEDICAID, SELFPAY | END 2023-12-02 09:14 | disposition home or self-care (01) | LOC: LAB 09:15 | PROVIDERS: PCP Pediatrics; Visit Provider Surgery | DX: R10.9 Unspecified abdominal pain (principal); K59.00 Constipation, unspecified | CPT/HCPCS: 83630; 83993 ==

== ENCOUNTER 2023-12-15 11:25 | Outpatient (CLI) | payer MEDICAID, SELFPAY ==
[2023-12-15] MEDS: iohexol 350 mg/mL 500 mL Btl (per mL) PO (12:15)
--- NOTE | 2023-12-15 12:30 | CT_ITS ---
WS: [id number] CT ABDOMEN PELVIS TECHNIQUE: Contrast-enhanced CT of the abdomen and pelvis with coronal and sagittal reformatted image s. CLINICAL INFORMATION: chronic abominal pain COMPARISON: CT 12/25/2022 DLP: 436.[address] scans at [facility] use at least one of these dose optimization techniques: automated e xposure control; mA and/or kV adjustment per patient size (includes targeted exams where dose is matc hed to clinical indication); or iterative reconstruction. FINDINGS: Prior hysterectomy. Diffuse fatty infiltration of the liver. Mild hepatomegaly. Normal spleen. Normal GE junction. Food products in the stomach. Lung bases are well aerated. Adrenal glands are normal. N ormal renal parenchymal enhancement. Numerous bilateral renal cysts similar to the prior examination. No hydronephrosis in either kidney. Normal pancreatic parenchymal enhancement. Normal portal vein and splenic vein. Normal caliber abdominal aorta. Celiac and SMA are patent. Gallbladder is contracted. No evidence of small or large bowel obstruction. Normal appendix. Tortuous sigmoid colon. Mild sigmoid constipation. Few sigmoid diverticuli. Mild constipation in the RIGHT co lynda and cecum. Tiny fat-containing umbilical hernia. CT/CT abdomen pelvis w con* [id number] IMPRESSION: 1. Mild diffuse fatty infiltration of the liver. 2. Numerous bilateral renal cysts similar to previous. No hydronephrosis. 3. Tortuous sigmoid colon with mild constipation. A few sigmoid diverticuli. 4. Mild constipation in the RIGHT colon and cecum. 5. Tiny fat-containing umbilical hernia. 6. Prior hysterectomy. 7. Normal appendix.
[2023-12-15] MEDS: iohexol 350 mg/mL 500 mL Btl (per mL) IV (12:32)
== END 2023-12-15 11:26 | disposition home or self-care (01) ==
LOC: RAD 11:25
PROVIDERS: PCP Pediatrics; Visit Provider Surgery
DX: K76.0 Fatty (change of) liver, not elsewhere classified (principal); N28.1 Cyst of kidney, acquired; K57.30 Diverticulosis of large intestine without perforation or abscess without bleeding; K59.00 Constipation, unspecified; K42.9 Umbilical hernia without obstruction or gangrene
CPT/HCPCS: 74177; Q9967

== ENCOUNTER → 2024-03-11 18:12 | Outpatient (BNVA) | payer MEDICAID, SELFPAY | PROVIDERS: PCP Pediatrics; Visit Provider Emergency Medicine | DX: R39.9 Unspecified symptoms and signs involving the genitourinary system (principal) | CPT/HCPCS: 81000; 87086 ==